=== PATIENT | female | born 1995 | race Caucasian/White ===

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

== ENCOUNTER 2017-11-11 16:08 | Emergency (ER) | payer OTHER ==
[~2017-11-11] VITALS: Ht 157.5 cm; Wt 49.0 kg
[2017-11-11 16:52] LABS: APPEARANCE CLEAR ((CLEAR)); BILIRUBIN NEGATIVE; BLOOD LARGE; COLOR YELLOW ((YELLOW)); GLUCOSE (STRIP) NEGATIVE; KETONES NEGATIVE; LEUKOCYTES NEGATIVE; NITRITE NEGATIVE; PROTEIN (STRIP) NEGATIVE; SPECIFIC GRAVITY 1.016 (1.000-1.030); UROBILINOGEN 0.2 MG/DL (0.2-1.0)
[2017-11-11 16:57] LABS: BACTERIA RARE /HPF; EPITHELIAL CELLS 1+ /HPF; MUCUS TRACE /LPF; RED BLOOD CELLS 0-5 /HPF (0-5); UCUL ADDED? NO; WHITE BLOOD CELLS 0-5 /HPF (0-5)
[2017-11-11 17:01] LABS: HEMOGLOBIN 13.7 G/DL (11.9-15.5); MCH 29.5 PG (29.0-34.0); MCHC 34.3 G/DL (30.0-36.0); MCV 86.2 FL (83-99); PLATELET COUNT 273 K/uL (156-360); RBC DIS.WIDTH-CV 12.5 % (11.8-14.6); RBC DIS.WIDTH-SD 39.4 % (39-53); RED BLOOD COUNT 4.64 M/uL (3.80-5.20); WHITE BLOOD COUNT 7.2 K/uL (4.1-10.2)
[2017-11-11 17:12] LABS: ALBUMIN 4.4 g/dL (3.2-4.8); CHLORIDE 106 mEq/L (99-109); POTASSIUM 3.5 mEq/L (3.7-5.4); SODIUM 140 mEq/L (136-147)
[2017-11-11 17:14] LABS: GLUCOSE 98 mg/dL (70-99); TOTAL PROTEIN 7.3 g/dL (6.4-8.3)
[2017-11-11 17:16] LABS: TOTAL BILIRUBIN 0.5 mg/dL (0.0-1.0)
[2017-11-11 17:18] LABS: ALKALINE PHOSPHATASE 71 IU/L (3-129); CREATININE 0.8 mg/dL (0.6-1.3); GFR ESTIMATE (CALCULATED) > 59 mL/min/
[2017-11-11 17:19] LABS: UREA NITROGEN (BUN) 11 mg/dL (9-23)
[2017-11-11 17:20] LABS: AST (GOT) 13 IU/L (2-34)
[2017-11-11 17:21] LABS: ALT (GPT) 9 IU/L (3-49); LIPASE 35 U/L (1.0-51.0)
[2017-11-11 17:28] LABS: QUANTITATIVE HCG < 4.0 MIU/ML
[2017-11-11] MEDS ORDERED: PRILOSEC20 MG PO (18:48)
[2017-11-11 19:15] VITALS: BP 104/75
== END 2017-11-11 19:17 | disposition home or self-care (01) ==
LOC: EME 16:08
PROVIDERS: Physician Assistant
DX: R10.13 Epigastric pain (principal); F17.200 Nicotine dependence, unspecified, uncomplicated; Z88.5 Allergy status to narcotic agent
CPT/HCPCS: 76705; 80053; 81003; 83690; 84702; 85027; 99281; 99284; J2405; J7030